=== PATIENT | female | born 1980 | race Caucasian/White ===

== ENCOUNTER 2017-08-27 17:21 | Inpatient (IN) | payer OTHER ==
[~2017-08-27] VITALS: Ht 167.6 cm; Wt 59.0 kg
[~2017-08-27 17:21] MED LIST: PHEN-873 PO
[2017-08-27 18:39] LABS: BASOPHILS % (AUTO) 0.4 % (0-1); EOSINOPHILS # (AUTO) 0.2 X10'3 (0-0.9); EOSINOPHILS % (AUTO) 1.5 % (0-6); HEMATOCRIT 45.3 % (35.0-45.0); HEMOGLOBIN 15.2 g/dl (12.0-16.0); LYMPHOCYTES # (AUTO) 1.6 X10'3 (1.1-4.8); LYMPHOCYTES % (AUTO) 14.2 % (21-51); MEAN CORPUSCULAR HEMOGLOBIN 31.2 PG (27.0-31.0); MEAN CORPUSCULAR HGB CONC 33.6 % (33.0-36.5); MONOCYTES # (AUTO) 0.7 X10'3 (0-0.9); MONOCYTES % (AUTO) 6.1 % (2-12); NEUTROPHILS % (AUTO) 77.8 % (42-75); PLATELET COUNT 251 X10'3 (140-440); RED BLOOD COUNT 4.87 X10'6 (4.20-5.60); RED CELL DISTRIBUTION WIDTH 14.1 % (11.5-14.5); WHITE BLOOD COUNT 11.6 X10'3 (4.5-11.0)
[2017-08-27 18:46] LABS: ALANINE AMINOTRANSFERASE 22 U/L (12-78); ALBUMIN 4.1 G/DL (3.4-5.0); ALBUMIN/GLOBULIN RATIO 1.1 (1.1-1.5); ALKALINE PHOSPHATASE 67 IU/L (46-116); ANION GAP 12 (8-16); ASPARTATE AMINO TRANSFERASE 16 U/L (10-37); BILIRUBIN,TOTAL 0.7 MG/DL (0.1-1.0); BLOOD UREA NITROGEN 13 MG/DL (7-18); BUN/CREATININE RATIO 17.1 (6.6-38.0); CALCIUM 9.2 MG/DL (8.5-10.1); CHLORIDE 106 MMOL/L (99-107); CREATININE 0.76 MG/DL (0.40-0.90); GLUCOSE 109 MG/DL (70-104); LIPASE 119 U/L (73-393); POTASSIUM 3.7 MMOL/L (3.5-5.1); SODIUM 141 MMOL/L (135-145); TOTAL CARBON DIOXIDE 23.3 MMOL/L (24-32); TOTAL PROTEIN 7.9 G/DL (6.4-8.2); eGFR 86 ML/MIN
[2017-08-27] MEDS ORDERED: normal saline 1000ML IV soln IVB ONE ×3 (20:05→21:30)
[2017-08-27] MEDS ORDERED: ondansetron/PF 4mg/2ml inj IV ONE (20:05)
[2017-08-27] MEDS ORDERED: famotidine/PF 10 mg/ml inj IV ONE (20:05)
[2017-08-27 20:09] LABS: URINE HCG NEGATIVE (NEG)
[2017-08-27 20:16] LABS: CLARITY,URINE CLEAR (Clear); COLOR,URINE YELLOW (Yellow); GLUCOSE, URINE NEGATIVE (Neg); KETONES,URINE >=80 mg/dl (Neg); LEUKOCYTE ESTERASE ,URINE NEGATIVE (Neg); NITRITES, URINE NEGATIVE (Neg); OCCULT BLOOD,URINE LARGE (Neg); PROTEIN,URINE 100 mg/dl (Neg)
[2017-08-27 20:22] LABS: UA COLLECTION TYPE CLN CATCH MIDSTREAM
[2017-08-27 20:27] LABS: BACTERIA,URINE 3+ /HPF (Neg); RBC,URINE TNTC /HPF (0-2); SQUAMOUS EPITHELIAL CELL,UR MODERATE /LPF (FEW)
[2017-08-27 20:28] LABS: MUCUS STRANDS MODERATE /LPF (Neg)
[2017-08-27] MEDS ORDERED: CefTRIAXone 1 gm/50ml D5W ADV 50 ML IV ONE (22:35)
[2017-08-27] MEDS ORDERED: [UNRECOGNIZED DRUG - OTHER] IV ONE (22:41)
[2017-08-27] MEDS ORDERED: CEFTRIAXONE IV ONE (22:41)
[2017-08-28] VITALS (15 sets, daily range): BP systolic 85–111; BP diastolic 44–70
[2017-08-28] MEDS ORDERED: ESCITALOPRAM 10MG TABLETS (00:42)
[2017-08-28] MEDS ORDERED: ketorolac trometh. 30mg/ml inj. IV ONE (00:50)
[2017-08-28] MEDS ORDERED: acetaminophen 325mg tablet PO PRN ×2 (01:50)
[2017-08-28] MEDS ORDERED: mag hydrox/Alum hydrox/simeth 30ml oral suspension PO PRN (01:50)
[2017-08-28] MEDS: normal saline 1000ml 1,000 ML IV SCH ×3 (01:50→19:55)
[2017-08-28] MEDS ORDERED: ondansetron/PF 4mg/2ml inj IV PRN ×2 (01:50→14:35)
[2017-08-28] MEDS ORDERED: magnesium hydroxide 30ml (MOM) UD suspension PO PRN (01:50)
[2017-08-28] MEDS ORDERED: normal saline 1000ml 1,000 ML IV ONE (01:55)
[2017-08-28] MEDS ORDERED: ringers solution, lacted 1,000 ML IV SCH (14:32)
[2017-08-28] MEDS ORDERED: labetalol 5mg/ml 20ml inj. IV PRN (14:35)
[2017-08-28] MEDS ORDERED: fentaNYL/PF 50MCG/1 ML 2ML syringe IV PRN ×2 (14:35)
[2017-08-28] MEDS ORDERED: hydrALAZINE 20mg/ml inj. IV PRN (14:35)
[2017-08-28] MEDS ORDERED: midazolam 2 mg/2 ml injection ONE (15:08)
[2017-08-28] MEDS ORDERED: propofol inj 20 ML IV ONE (15:10)
[2017-08-28] MEDS ORDERED: dexamethasone sod phosphate 4mg/ml inj. ONE (15:10)
[2017-08-28] MEDS ORDERED: ondansetron/PF 4mg/2ml inj ONE (15:10)
[2017-08-28] MEDS: CefTRIAXone 2gm/D5W 50ml ADVTG 50 ML IV SCH (22:50)
[2017-08-29 02:00] VITALS: BP 104/65
[2017-08-29 05:25] LABS: BASOPHILS % (AUTO) 0.1 % (0-1); EOSINOPHILS # (AUTO) 0.1 X10'3 (0-0.9); EOSINOPHILS % (AUTO) 1.3 % (0-6); HEMATOCRIT 36.1 % (35.0-45.0); LYMPHOCYTES # (AUTO) 1.1 X10'3 (1.1-4.8); LYMPHOCYTES % (AUTO) 18.2 % (21-51); MEAN CORPUSCULAR HEMOGLOBIN 31.3 PG (27.0-31.0); MEAN CORPUSCULAR HGB CONC 33.3 % (33.0-36.5); MEAN CORPUSCULAR VOLUME 93.9 FL (78-98); MEAN PLATELET VOLUME 9.6 FL (7.4-10.4); MONOCYTES # (AUTO) 0.3 X10'3 (0-0.9); MONOCYTES % (AUTO) 5.5 % (2-12); NEUTROPHILS # (AUTO) 4.6 X10'3 (1.8-7.7); NEUTROPHILS % (AUTO) 74.9 % (42-75); PLATELET COUNT 201 X10'3 (140-440); RED BLOOD COUNT 3.84 X10'6 (4.20-5.60); RED CELL DISTRIBUTION WIDTH 14.1 % (11.5-14.5); WHITE BLOOD COUNT 6.1 X10'3 (4.5-11.0)
[2017-08-29 05:55] LABS: ALBUMIN 2.9 G/DL (3.4-5.0); ANION GAP 11 (8-16); BLOOD UREA NITROGEN 12 MG/DL (7-18); BUN/CREATININE RATIO 18.5 (6.6-38.0); CALCIUM 7.9 MG/DL (8.5-10.1); CHLORIDE 111 MMOL/L (99-107); CREATININE 0.65 MG/DL (0.40-0.90); GLUCOSE 100 MG/DL (70-104); POTASSIUM 4.8 MMOL/L (3.5-5.1); SODIUM 140 MMOL/L (135-145); TOTAL CARBON DIOXIDE 17.7 MMOL/L (24-32); eGFR > 90 ML/MIN
[2017-08-29] MEDS: normal saline 1000ml 1,000 ML IV SCH ×3 (06:43→22:53)
[2017-08-29] MEDS ORDERED: LACTOBACILLUS RHAMNOSUS GG 15 billion unit sprinkle caps PO SCH (07:30)
[2017-08-29] MEDS: phenazopyridine 100mg tablet PO SCH ×3 (07:35→17:05)
[2017-08-29 08:01] VITALS: BP 102/67
[2017-08-29] MEDS ORDERED: ESCI10TA PO (10:55)
[2017-08-29 12:05] VITALS: BP 105/54
[2017-08-29 16:52] VITALS: BP 105/52
[2017-08-29 17:24] VITALS: BP 122/74
[2017-08-29 19:00] VITALS: BP 95/48
[2017-08-29] MEDS ORDERED: HYDROmorphone 1 mg/ml syringe IV PRN (19:35)
[2017-08-29] MEDS: docusate sod 100mg capsule PO SCH (21:28)
[2017-08-29] MEDS: oxybutynin 5mg tablet PO SCH (21:28)
[2017-08-29] MEDS: CefTRIAXone 2gm/D5W 50ml ADVTG 50 ML IV SCH (21:35)
[2017-08-29] MEDS: LACTOSE-FREE FOOD 237ML (BOOST) PO SCH (21:38)
[2017-08-30] VITALS: BP 91/48
[2017-08-30] MEDS: normal saline 1000ml 1,000 ML IV SCH (04:22)
[2017-08-30 05:08] LABS: BASOPHILS % (AUTO) 0.7 % (0-1); EOSINOPHILS % (AUTO) 0.7 % (0-6); HEMATOCRIT 33.4 % (35.0-45.0); HEMOGLOBIN 11.2 g/dl (12.0-16.0); LYMPHOCYTES # (AUTO) 3.2 X10'3 (1.1-4.8); LYMPHOCYTES % (AUTO) 43.4 % (21-51); MEAN CORPUSCULAR HEMOGLOBIN 31.3 PG (27.0-31.0); MEAN CORPUSCULAR HGB CONC 33.6 % (33.0-36.5); MEAN CORPUSCULAR VOLUME 93.3 FL (78-98); MEAN PLATELET VOLUME 9.4 FL (7.4-10.4); MONOCYTES # (AUTO) 0.8 X10'3 (0-0.9); NEUTROPHILS # (AUTO) 3.2 X10'3 (1.8-7.7); NEUTROPHILS % (AUTO) 44.2 % (42-75); PLATELET COUNT 181 X10'3 (140-440); RED BLOOD COUNT 3.58 X10'6 (4.20-5.60); RED CELL DISTRIBUTION WIDTH 13.8 % (11.5-14.5); WHITE BLOOD COUNT 7.3 X10'3 (4.5-11.0)
[2017-08-30 06:03] LABS: ALBUMIN 2.6 G/DL (3.4-5.0); ANION GAP 2 (8-16); BLOOD UREA NITROGEN 7 MG/DL (7-18); BUN/CREATININE RATIO 10.4 (6.6-38.0); CHLORIDE 115 MMOL/L (99-107); CREATININE 0.67 MG/DL (0.40-0.90); GLUCOSE 96 MG/DL (70-104); POTASSIUM 4.1 MMOL/L (3.5-5.1); SODIUM 144 MMOL/L (135-145); TOTAL CARBON DIOXIDE 26.8 MMOL/L (24-32); eGFR > 90 ML/MIN
[2017-08-30] MEDS: oxybutynin 5mg tablet PO SCH ×2 (07:14→13:13)
[2017-08-30] MEDS: docusate sod 100mg capsule PO SCH (07:14)
[2017-08-30] MEDS: phenazopyridine 100mg tablet PO SCH ×2 (07:15→13:13)
[2017-08-30] MEDS ORDERED: nicotine 14mg patch - 24hr TD SCH (08:00)
[2017-08-30 08:20] VITALS: BP 94/52
[2017-08-30] MEDS: LACTOSE-FREE FOOD 237ML (BOOST) PO SCH ×2 (08:55→13:13)
[2017-08-30 11:58] VITALS: BP 98/51
[2017-08-30] MEDS ORDERED: OXYB5TAB11 PO (13:51)
[2017-08-30] MEDS ORDERED: CEPH500C5 PO (13:51)
[2017-08-30] MEDS ORDERED: PHEN-887 PO (13:51)
[2017-08-31] MEDS ORDERED: LACTOBACILLUS RHAMNOSUS GG 15 billion unit sprinkle caps PO SCH (07:30)
== END 2017-08-30 14:58 | disposition home or self-care (01) | DRG 872 ==
LOC: ER 17:23 → ED HOLD 08-28 01:50 → PCU 3S 08-28 17:00 → SUR 3N 08-29 17:44
PROVIDERS: ADMIT Internal Medicine; ATTEND Internal Medicine
PROC: 0T778DZ Dilation of Left Ureter with Intraluminal Device, Via Natural or Artificial Opening Endoscopic (ICD-10-PCS; principal; 2017-08-28 15:15)
DX: A41.9 Sepsis, unspecified organism (principal); E86.0 Dehydration; N13.2 Hydronephrosis with renal and ureteral calculous obstruction; Z87.442 Personal history of urinary calculi; Z87.891 Personal history of nicotine dependence; F41.9 Anxiety disorder, unspecified; Z72.0 Tobacco use; Z71.6 Tobacco abuse counseling; R31.9 Hematuria, unspecified; B95.61 Methicillin susceptible Staphylococcus aureus infection as the cause of diseases classified elsewhere
CPT/HCPCS: 96361; 96365; 96366; 96375; 99285; Z7506; 36415; 74176; 76000; 80048; 80053; 81001; 81025; 83690; 85025; 87070; 87088; A4402; C1758; C1769; C2625; J0696; J1100; J1885; J2250; J2270; J2405; J2704; J3490; J7030; J7120

== ENCOUNTER 2018-07-02 07:34 | Emergency (ER) | payer OTHER ==
[~2018-07-02] VITALS: Ht 167.6 cm; Wt 56.8 kg
[~2018-07-02 07:34] MED LIST changes: +CEPH500C5 PO; +ESCI10TA PO; +HYDR-4383 PO; +IBUP-1986 PO; +OXYB5TAB11 PO; -PHEN-873 PO; +PHEN-887 PO
[2018-07-02] MEDS ORDERED: ondansetron/PF 4mg/2ml inj IV ONE (07:50)
[2018-07-02] MEDS ORDERED: diphenhydrAMINE 50 mg/ml inj IV ONE (07:50)
[2018-07-02] MEDS ORDERED: ketorolac trometh. 30mg/ml inj. IV ONE (07:50)
[2018-07-02] MEDS ORDERED: haloperidol lactate 5mg/ml inj IM ONE (07:50)
[2018-07-02] MEDS ORDERED: normal saline 1000ML IV soln IVB ONE (07:50)
[2018-07-02 08:26] LABS: BASOPHILS % (AUTO) 0.5 % (0-1); EOSINOPHILS # (AUTO) 0.1 X10'3 (0-0.9); EOSINOPHILS % (AUTO) 1.1 % (0-6); HEMATOCRIT 37.6 % (35.0-45.0); HEMOGLOBIN 12.8 g/dl (12.0-16.0); LYMPHOCYTES % (AUTO) 12.5 % (21-51); MEAN CORPUSCULAR HEMOGLOBIN 31.1 PG (27.0-31.0); MEAN CORPUSCULAR HGB CONC 33.9 % (33.0-36.5); MEAN CORPUSCULAR VOLUME 91.7 FL (78-98); MEAN PLATELET VOLUME 8.6 FL (7.4-10.4); MONOCYTES # (AUTO) 0.4 X10'3 (0-0.9); MONOCYTES % (AUTO) 4.6 % (2-12); NEUTROPHILS # (AUTO) 6.2 X10'3 (1.8-7.7); NEUTROPHILS % (AUTO) 81.3 % (42-75); PLATELET COUNT 250 X10'3 (140-440); RED BLOOD COUNT 4.11 X10'6 (4.20-5.60); RED CELL DISTRIBUTION WIDTH 13.8 % (11.5-14.5); WHITE BLOOD COUNT 7.6 X10'3 (4.5-11.0)
[2018-07-02 08:41] LABS: ALANINE AMINOTRANSFERASE 23 U/L (12-78); ALBUMIN 3.5 G/DL (3.4-5.0); ALKALINE PHOSPHATASE 49 IU/L (46-116); ANION GAP 12 (8-16); ASPARTATE AMINO TRANSFERASE 15 U/L (10-37); BILIRUBIN,TOTAL 0.8 MG/DL (0.1-1.0); BLOOD UREA NITROGEN 18 MG/DL (7-18); BUN/CREATININE RATIO 20.9 (6.6-38.0); CALCIUM 8.4 MG/DL (8.5-10.1); CHLORIDE 106 MMOL/L (99-107); CREATININE 0.86 MG/DL (0.40-0.90); GLUCOSE 101 MG/DL (70-104); LIPASE 145 U/L (73-393); SODIUM 139 MMOL/L (135-145); TOTAL CARBON DIOXIDE 21.2 MMOL/L (24-32); eGFR 74 ML/MIN
[2018-07-02 08:46] LABS: URINE HCG NEGATIVE (NEG)
[2018-07-02 08:50] LABS: CLARITY,URINE CLEAR (Clear); COLOR,URINE YELLOW (Yellow); GLUCOSE, URINE NEGATIVE (Neg); KETONES,URINE >=80 mg/dl (Neg); LEUKOCYTE ESTERASE ,URINE NEGATIVE (Neg); NITRITES, URINE NEGATIVE (Neg); OCCULT BLOOD,URINE MODERATE (Neg); PROTEIN,URINE NEGATIVE (Neg); UROBILINOGEN,URINE 0.2 E.U/dL (0.2-1.0)
[2018-07-02 08:53] LABS: UA COLLECTION TYPE CLN CATCH MIDSTREAM
[2018-07-02 08:58] LABS: BACTERIA,URINE 1+ /HPF (Neg); MUCUS STRANDS NONE SEEN /LPF (Neg); SQUAMOUS EPITHELIAL CELL,UR MODERATE /LPF (FEW); WBC,URINE 0-4 /HPF (0-4)
[2018-07-02] MEDS ORDERED: ONDA8TAB9 PO (10:30)
[2018-07-02 11:01] VITALS: BP 103/68
== END 2018-07-02 11:03 | disposition home or self-care (01) ==
LOC: ER 07:35
DX: G43.A0 Cyclical vomiting, in migraine, not intractable (principal); F12.90 Cannabis use, unspecified, uncomplicated; F17.200 Nicotine dependence, unspecified, uncomplicated; Z98.890 Other specified postprocedural states; Z79.2 Long term (current) use of antibiotics; Z79.899 Other long term (current) drug therapy
CPT/HCPCS: 36415; 80053; 81001; 81025; 83690; 85025; 96372; 96374; 96375; 99284; J1200; J1630; J1885; J2405

== ENCOUNTER 2021-01-28 13:09 | Emergency (ER) | payer OTHER ==
[~2021-01-28] VITALS: Ht 167.6 cm; Wt 69.0 kg
[~2021-01-28 13:09] MED LIST changes: -CEPH500C5 PO; -HYDR-4383 PO; -IBUP-1986 PO; -OXYB5TAB11 PO; -PHEN-887 PO; +tamsulosin capsule PO
[2021-01-28] MEDS ORDERED: normal saline 1000ML IV soln IVB ONE (13:20)
[2021-01-28 13:32] LABS: URINE HCG NEGATIVE (NEG)
[2021-01-28 13:33] LABS: CLARITY,URINE CLOUDY (Clear); COLOR,URINE YELLOW (Yellow); GLUCOSE, URINE NEGATIVE (Neg); KETONES,URINE NEGATIVE (Neg); LEUKOCYTE ESTERASE ,URINE NEGATIVE (Neg); NITRITES, URINE NEGATIVE (Neg); OCCULT BLOOD,URINE SMALL (Neg); PH,URINE 6.5 (4.8-8.0); PROTEIN,URINE NEGATIVE (Neg); UROBILINOGEN,URINE 0.2 E.U/dL (0.2-1.0)
[2021-01-28 13:42] LABS: UA COLLECTION TYPE CLN CATCH MIDSTREAM
[2021-01-28 13:45] LABS: BACTERIA,URINE 3+ /HPF (Neg); RBC,URINE 0-2 /HPF (0-2); SQUAMOUS EPITHELIAL CELL,UR MANY /LPF (FEW)
[2021-01-28 13:55] LABS: BASOPHILS # (AUTO) 0.1 X10'3 (0-0.2); BASOPHILS % (AUTO) 1.4 % (0-1); EOSINOPHILS % (AUTO) 0.7 % (0-6); HEMATOCRIT 44.8 % (35.0-45.0); HEMOGLOBIN 15.2 g/dl (12.0-16.0); LYMPHOCYTES # (AUTO) 1.1 X10'3 (1.1-4.8); LYMPHOCYTES % (AUTO) 25.1 % (21-51); MEAN CORPUSCULAR HEMOGLOBIN 32.5 PG (27.0-31.0); MEAN CORPUSCULAR HGB CONC 33.9 g/dL (33.0-36.5); MEAN CORPUSCULAR VOLUME 95.7 FL (78-98); MEAN PLATELET VOLUME 8.4 FL (7.4-10.4); MONOCYTES # (AUTO) 0.6 X10'3 (0-0.9); MONOCYTES % (AUTO) 14.3 % (2-12); NEUTROPHILS # (AUTO) 2.6 X10'3 (1.8-7.7); NEUTROPHILS % (AUTO) 58.5 % (42-75); PLATELET COUNT 240 X10'3 (140-440); RED BLOOD COUNT 4.68 X10'6 (4.20-5.60); RED CELL DISTRIBUTION WIDTH 13.8 % (11.5-14.5); WHITE BLOOD COUNT 4.5 X10'3 (4.5-11.0)
[2021-01-28 13:59] LABS: ALANINE AMINOTRANSFERASE 16 U/L (12-78); ALBUMIN 3.7 G/DL (3.4-5.0); ALBUMIN/GLOBULIN RATIO 0.9 (1.1-1.5); ALKALINE PHOSPHATASE 68 IU/L (46-116); ANION GAP 9 (8-16); ASPARTATE AMINO TRANSFERASE 18 U/L (10-37); BILIRUBIN,TOTAL 0.3 MG/DL (0.1-1.0); BLOOD UREA NITROGEN 15 MG/DL (7-18); BUN/CREATININE RATIO 22.4 (6.6-38.0); CALCIUM 8.5 MG/DL (8.5-10.1); CHLORIDE 105 MMOL/L (99-107); CREATININE 0.67 MG/DL (0.40-0.90); GLUCOSE 89 MG/DL (70-104); SODIUM 138 MMOL/L (135-145); TOTAL PROTEIN 7.6 G/DL (6.4-8.2); eGFR > 90 ML/MIN
[2021-01-28] MEDS ORDERED: ketorolac trometh. 30mg/ml inj. IV ONE (14:35)
--- NOTE | 2021-01-28 14:35 | NUR ---
pt c/o left flank pain on scale, 7/10. informed saul lal please see new orders.
--- NOTE | 2021-01-28 14:44 | NUR ---
US TECH RELINA AT BEDSIDE FOR US
[2021-01-28] MEDS ORDERED: SULF1TAB49 PO (14:54)
[2021-01-28 15:20] VITALS: BP 107/69
== END 2021-01-28 15:22 | disposition home or self-care (01) ==
LOC: ER 13:09
DX: N39.0 Urinary tract infection, site not specified (principal); N23 Unspecified renal colic; R11.10 Vomiting, unspecified; F41.9 Anxiety disorder, unspecified; F32.9 Major depressive disorder, single episode, unspecified; F17.200 Nicotine dependence, unspecified, uncomplicated; F12.90 Cannabis use, unspecified, uncomplicated; Z87.442 Personal history of urinary calculi; Z87.440 Personal history of urinary (tract) infections; Z98.890 Other specified postprocedural states; Z79.2 Long term (current) use of antibiotics; Z79.899 Other long term (current) drug therapy
CPT/HCPCS: 36415; 76770; 80053; 81001; 81025; 85025; 96361; 96374; 99284; J1885; J7030

== ENCOUNTER 2025-04-14 12:14 | Emergency (ER) | payer OTHER ==
[~2025-04-14] VITALS: Ht 167.6 cm; Wt 63.5 kg
[2025-04-14 12:20] VITALS: TEMP 97.5
[2025-04-14 12:50] LABS: MEAN PLATELET VOLUME 8.4 FL (7.4-10.4); RED CELL DISTRIBUTION WIDTH 14.0 % (11.5-14.5)
[2025-04-14 13:05] LABS: CREATININE 1.06 MG/DL (0.40-0.90); TOTAL CARBON DIOXIDE 20.0 MMOL/L (24-32); eCRCL 63 ML/MIN; eGFR 56 ML/MIN
--- NOTE | 2025-04-14 13:07 | Physician Documentation ---
History of Present Illness ~ Chief Complaint: Flank Pain Stated Complaint: POSS KIDNEY INFECTION Time Seen by MD: 12:34 Primary Medical Doctor: none Source: patient Mode of Arrival: POV Exam Limitations: no limitations HPI 44-year-old female with history of kidney stones and kidney infection started to experience intermittent right flank pain on Thursday. Patient states that she has had kidney stones in the past that required intervention. Patient states she does not have any dysuria urgency or frequency. Patient states that she has felt subjectively feverish but no actual fever. Patient had some leftover Cipro which she took 1 pill on Thursday and then 1 pill yesterday. Patient states the bottle tipped over and she has felt water and was unable to take anymore. Patient states she had a little bit of kidney pain on her left side but it has mostly been on the right side especially today extending across to her right lower abdomen. Patient started her menstrual cycle yesterday Medication Reconciliation Allergies: Coded Allergies: No Known Allergies (Unverified , 06/30/20) Scheduled Ciprofloxacin HCl (Cipro), 1 TAB PO Q12H Escitalopram Oxalate (Lexapro), 1 TAB PO DAILY, (Reported) [tamsulosin capsule], 0.4 MG PO DAILY Past Medical History Past Medical History: *GI/HEPATOBILIARY*, Kidney Stones, UTI, Anxiety, Depression Past Surgical History: orthopedic surgeries Other Past Surgical History: lithotripsy, left ureteral splint Alcohol Use: Rarely Drug Use: marijuana Lives with: Family Lives In: Home Review of Systems All Other Systems at this time: Reviewed and Negative Gastrointestinal: Reports: see HPI Physical Exam Vital Signs: RN Vital Signs have been reviewed: Yes, Temperature: 97.5, Source: Temporal, Heart Rate: 91, Respiratory Rate: 16, BP: 120/70, Pulse Oximetry: 99, Weight: 63.500 General Appearance: alert, WD/WN, no apparent distress Respiratory: lungs clear, normal breath sounds, no respiratory distress Chest: no accessory muscle use, chest non-tender Cardiovascular: normal peripheral pulses, regular rate, rhythm, no edema Gastrointestinal: normal palpation, non-tender, bowels sounds present Gastrointestinal No suprapubic tenderness Back: CVA tenderness (R) Progress Results/Orders Results/Orders Orders - JOANIE MENSAH CHILD WELFARE SPECIALIST Ct Abdomen Pelvis (04/14/25 13:37) Completed Orders - JOANIE MENSAH CHILD WELFARE SPECIALIST Ct Abdomen Pelvis (04/14/25 13:37) Normal Saline 1000ml (0.9% Sodium Chlori (04/14/25 13:30) Potassium Cl Sr Tablet (K-Dur Tablet) (04/14/25 13:30) Ceftriaxone/[id number] 1gm (Rocephin 1 (04/14/25 13:30) Medications Received in ER Medications (Trade) Dose Ordered Sig/Shanna Route PRN Reason Start Time Stop Time Status Last Admin Dose Admin (0.9% sodium chloride (NS) 1000ml IV soln) 1,000 ml ONCE ONCE IVB 04/14/25 13:30 04/14/25 13:42 DC 04/14/25 14:20 1,000 ML (K-DUR tablet) 20 meq ONCE ONCE PO 04/14/25 13:30 04/14/25 13:42 DC 04/14/25 14:20 20 MEQ Ceftriaxone Sodium 50 ml @ 100 mls/hr ONCE ONCE IV 04/14/25 13:30 04/14/25 13:59 DC 04/14/25 14:18 100 MLS/HR Vital Signs 04/14/25 04/14/25 04/14/25 12:20 13:18 13:21 Temp 97.5 Pulse 91 Resp 16 16 14 B/P (MAP) 120/70 112/81 (91) Pulse Ox 99 Laboratory Tests Test 04/14/25 12:42 04/14/25 13:15 White Blood Count 11.6 H Red Blood Count 4.70 Hemoglobin 15.1 Hematocrit 44.2 Mean Corpuscular Volume 94.1 Mean Corpuscular Hemoglobin 32.1 H Mean Corpuscular Hemoglobin Concent 34.1 Red Cell Distribution Width 14.0 Platelet Count 299 Mean Platelet Volume 8.4 Neutrophils (%) (Auto) 77.8 H Lymphocytes (%) (Auto) 11.3 L Monocytes (%) (Auto) 9.7 Eosinophils (%) (Auto) 0.6 Basophils (%) (Auto) 0.6 Neutrophils # (Auto) 9.0 H Lymphocytes # (Auto) 1.3 Monocytes # (Auto) 1.1 H Eosinophils # (Auto) 0.1 Basophils # (Auto) 0.1 CBC Comment Sodium Level 135 Potassium Level 3.3 L Chloride Level 102 Carbon Dioxide Level 20.0 L Anion Gap 13 Blood Urea Nitrogen 18 Creatinine 1.06 H Estimated GFR/1.73 m2 56 BUN/Creatinine Ratio 17.0 Glucose Level 120 H Calcium Level 9.5 Total Bilirubin 0.6 Aspartate Amino Transf (AST/SGOT) 12 Alanine Aminotransferase (ALT/SGPT) 17 Alkaline Phosphatase 78 Total Protein 8.4 H Albumin 3.7 Globulin 4.7 H Albumin/Globulin Ratio 0.8 L Lipase 24 Chemistry Comments Urine Specimen Description Cln catch midstream Urine Color Dark yellow Urine Clarity Slightly cloudy Urine pH 6.0 Urine Specific [place] 1.025 Urine Protein 100 H Urine Glucose (UA) Negative Urine Ketones 40 H Urine Occult Blood Large H Urine Nitrite Negative Urine Bilirubin Moderate Urine Urobilinogen 0.2 Urine Leukocyte Esterase Moderate H Urine RBC 50-100 Urine WBC 20-30 H Urine Squamous Epithelial Cells Few Urine Transitional Epithelial Cells Few Urine Renal Cells Few Urine Bacteria Few Urine Mucus Few Urine Culture Indicated Indicated Volume Urine Centrifuged 3 ml Urine HCG, Qualitative Negative Urine Comment Low volume EKG/XRAY/CT/US/VASC/MRI CT : Impression Patient: SANTIAGO MEYERS Medical Record: [id number] [facility] : 1980, Age: 44 Sex: Female Location: ER Patient Status: [facility] ER Service Date/Time: 04/14/251336 Ordering Physician: JOANIE MENSAH CHILD WELFARE SPECIALIST Exam: CT ABDOMEN PELVIS Exam: CT CT ABDOMEN PELVIS History: Kidney stones right flank pain COMPARISON: None Technique: Multidetector spiral CT of the abdomen and pelvis was performed from lung bases to pubic symphysis. Intravenous contrast was administered during this examination. Portal venous imaging was obtained. Axial, coronal and sagittal multiplanar reformats were performed by the technologist on a separate orkstation. Radiation Dose : 1. Abdomen/Pelvis: CTDIvol 12.4 mGy, DLP 572.3 mGy*cm. Findings: Lung Bases: No acute or significant lung base finding. Normal heart size. No pleural or pericardial effusion. Liver: The liver is normal in size. No focal lesions. Normal hepatic vascular enhancement. Gallbladder and Biliary Tree: Unremarkable Spleen: Unremarkable Pancreas: The pancreas is normal in appearance without focal lesions or abnormal enhancement. Adrenal Glands: Unremarkable Kidneys: Moderate right hydroureteronephrosis. 0.4 cm obstructing stone in the distal right ureter (943 HU). Multiple bilateral mostly punctate nonobstructing renal stones. Bladder: Unremarkable Bowel: The stomach is grossly normal in appearance. Small bowel and colon are normal in caliber and distribution. The appendix is not visualized; however, no secondary findings of acute appendicitis identified. Ascites: Absent Lymphadenopathy: No mesenteric, retroperitoneal or periportal lymphadenopathy. Abdominal Wall and Mesentery: Unremarkable. Vasculature: The visualized abdominal aorta is normal in size and caliber. Abdominal and pelvic vessels demonstrate normal enhancement. Pelvic Organs: Unremarkable Musculoskeletal: No aggressive focal bony lesions, acute fractures or dislocation. IMPRESSION: Moderate right hydroureteronephrosis. 0.4 cm obstructing stone in the distal right ureter (943 HU). Medical Decision Making Findings Vital signs reassuring CT scan ordered to evaluate for kidney stone versus UTI infection. Patient has CVA tenderness on the right but inconsistent story with CVA tenderness on the left at 1 point started Thursday. Patient's urine was p ositive for leukocytes and nitrates it does appear to be likely pyelonephritis. 1 L of normal saline and a g of Rocephin prior to departure. Patient's vital signs reassuring. Labs do indicate some increase in white blood cells discharged with antibiotics CT indicated a small 4 mm obstructing stone to the right ureter. Flomax has also been prescribed patient to follow up Departure Time of Disposition: 14:26 Disposition: 01 HOME / SELF CARE / HOMELESS Impression: Primary Impression: Acute pyelonephritis Additional Impression: Calculus of kidney Condition: Stable Discharge Instructions: Pyelonephritis, Adult, Kidney Stones Additional Instructions: Does appear that you have a kidney infection and a small stone 4 mm in the right ureter. Take antibiotics as prescribed stay well hydrated. Follow up with primary care next week feel free to return to the ER for any new or worsening symptoms. Referrals: NO PRIMARY CARE PROVIDER (PCP) Prescriptions Hydrocodone Bit/Acetaminophen (Hydrocodone-Apap 10-325 Tablet) 10mg/325mg Ta blet 1 TAB PO TID PRN PRN for pain for 5 Days, #15 TAB Prov: JOANIE MENSAH CHILD WELFARE SPECIALIST 04/14/25 Tamsulosin Hcl* (Flomax*) 0.4 Mg Cap.sr.24h 1 CAP PO DAILY for 30 Days, #30 CAP Prov: JOANIE MENSAH NP 04/14/25 Ciprofloxacin HCl (Cipro) 500 Mg Tablet 1 TAB PO Q12H for 10 Days, #20 TAB Prov: JOANIE MENSAH CHILD WELFARE SPECIALIST 04/14/25 Education Educated: Patient Educated regarding: diagnosis, treatment, need for follow up Signature Scribe Signature: No scribe Attestation: The note accurately reflects work and decisions made by me.Joanie SORENSEN 04/14/25 13:06 JOANIE MENSAH NP Apr 14, 2025 13:07
[2025-04-14 13:25] LABS: URINE HCG NEGATIVE (NEG)
[2025-04-14 13:30] LABS: LEUKOCYTE ESTERASE ,URINE MODERATE (Neg); NITRITES, URINE NEGATIVE (Neg); OCCULT BLOOD,URINE LARGE (Neg)
[2025-04-14 13:31] LABS: UA COLLECTION TYPE CLN CATCH MIDSTREAM
[2025-04-14 13:38] LABS: MUCUS STRANDS FEW /LPF (Neg); RENAL CELLS, URINE FEW /HPF; SQUAMOUS EPITHELIAL CELL,UR FEW /LPF (FEW)
[2025-04-14] MEDS ORDERED: CIPR-259 PO (13:59)
--- NOTE | 2025-04-14 14:13 | RADIOLOGY REPORT ---
Exam: CT CT ABDOMEN PELVIS History: Kidney stones right flank pain COMPARISON: None Technique: Multidetector spiral CT of the abdomen and pelvis was performed from lung bases to pubic s ymphysis. Intravenous contrast was administered during this examination. Portal venous imaging was o btained. Axial, coronal and sagittal multiplanar reformats were performed by the technologist on a [employer] workstation. Radiation Dose : 1. Abdomen/Pelvis: CTDIvol 12.4 mGy, DLP 572.3 mGy*cm. Findings: Lung Bases: No acute or significant lung base finding. Normal heart size. No pleural or pericardial effusion. Liver: The liver is normal in size. No focal lesions. Normal hepatic vascular enhancement. Gallbladder and Biliary Tree: Unremarkable Spleen: Unremarkable Pancreas: The pancreas is normal in appearance without focal lesions or abnormal enhancement. Adrenal Glands: Unremarkable Kidneys: Moderate right hydroureteronephrosis. 0.4 cm obstructing stone in the distal right ureter (943 HU). Multiple bilateral mostly punctate nonobstructing renal stones. Bladder: Unremarkable Bowel: The stomach is grossly normal in appearance. Small bowel and colon are normal in caliber and d istribution. The appendix is not visualized; however, no secondary findings of acute appendicitis michela ntified. Ascites: Absent Lymphadenopathy: No mesenteric, retroperitoneal or periportal lymphadenopathy. Abdominal Wall and Mesentery: Unremarkable. Vasculature: The visualized abdominal aorta is normal in size and caliber. Abdominal and pelvic vess els demonstrate normal enhancement. Pelvic Organs: Unremarkable Musculoskeletal: No aggressive focal bony lesions, acute fractures or dislocation. IMPRESSION: Moderate right hydroureteronephrosis. 0.4 cm obstructing stone in the distal right ureter (943 HU).
[2025-04-14] MEDS: CefTRIAXone/D5W-Rocephin 1gm 50 ML IV ONE (14:18)
[2025-04-14] MEDS: potassium Cl 20 mEq SR tablet PO ONE (14:20)
[2025-04-14] MEDS: normal saline 1000ML IV soln IVB ONE (14:20)
[2025-04-14] MEDS ORDERED: TAMS-55 PO (14:27)
[2025-04-14] MEDS ORDERED: HYDR-3973 PO (14:27)
[2025-04-14 15:15] VITALS: BP 118/80; PULSE 65; RESP 16; O2SAT 99
== END 2025-04-14 15:18 | disposition home or self-care (01) ==
LOC: ER 12:15
DX: N10 Acute pyelonephritis (principal); N20.0 Calculus of kidney; F12.90 Cannabis use, unspecified, uncomplicated; F41.9 Anxiety disorder, unspecified; F32.A Depression, unspecified; Z79.899 Other long term (current) drug therapy; Z87.442 Personal history of urinary calculi
CPT/HCPCS: 36415; 74176; 80053; 81001; 81025; 83690; 85025; 87077; 87088; 87186; 96361; 96365; 99285; J0696; J7030